=== PATIENT | male | born 1995 | race African-American/Black ===

== ENCOUNTER 2025-01-14 19:38 | Emergency (ER) | payer SELFPAY ==
[2025-01-14] MEDS: Lidocaine 2% Viscous Solution 15 ML UD PO ONE (20:18)
[2025-01-14] MEDS: Benzocaine 20% Topical Spray UD MUCMEM ONE (20:18)
[2025-01-14] MEDS: Ketorolac 30 MG/ML SDV IM ONE (20:18)
[2025-01-14] MEDS: Acetaminophen 500 MG Tab PO ONE (20:18)
== END 2025-01-14 20:25 | disposition home or self-care (01) ==
LOC: MW.ED 19:38
DX: K02.9 Dental caries, unspecified (principal); R68.84 Jaw pain; Z79.899 Other long term (current) drug therapy
CPT/HCPCS: 96372; 99283; A9270-GY; J1885